=== PATIENT | male | born 1985 | race Caucasian/White ===

== ENCOUNTER 2019-04-15 09:59 | Emergency (ER) | payer SELFPAY ==
[~2019-04-15] VITALS: Ht 172.7 cm; Wt 83.5 kg
[2019-04-15 10:41] VITALS: Ht 172.7 cm; Wt 83.5 kg
[2019-04-15 12:30] VITALS: BP 132/87
== END 2019-04-15 12:30 | disposition home or self-care (01) ==
LOC: ED 09:59
DX: S42.91XA Fracture of right shoulder girdle, part unspecified, initial encounter for closed fracture (principal); S42.301A Unspecified fracture of shaft of humerus, right arm, initial encounter for closed fracture; S80.211A Abrasion, right knee, initial encounter; X58.XXXA Exposure to other specified factors, initial encounter; Y93.89 Activity, other specified; Y92.89 Other specified places as the place of occurrence of the external cause; Y99.9 Unspecified external cause status
CPT/HCPCS: 90715